=== PATIENT | male | born 1955 | race Caucasian/White ===

== ENCOUNTER 2016-10-31 05:41 | Inpatient (IN) | payer OTHER ==
--- NOTE | 2016-10-30 09:54 | HP ---
ADMIT DATE: 10/31/2016 DATE OF SURGERY: 10/31/2016 DIAGNOSIS: Bilateral claudication. HISTORY OF PRESENT ILLNESS: A 61-year-old male who came in initially with some left hip claudication. He had abnormally low ankle brachial indices and aortogram and runoff done here at [facility] showed aortoiliac and femoral stenotic and occlusive disease. He subsequently underwent cardiac clearance, was found to have coronary artery disease, and had 3 coronary artery stents. He now is admitted for an aortobifemoral bypass. PAST MEDICAL HISTORY: MEDICATIONS: Do include aspirin daily and Plavix plus see his reconciliation list for others. ILLNESSES: Hyperlipidemia, hypertension, coronary artery disease and peripheral vascular disease. Coronary artery stent was placed in mid September. SOCIAL HISTORY: Former smoker, quit about one month ago. ALLERGIES: None known. REVIEW OF SYSTEMS: Negative for diabetes and stroke. His review of systems is positive for GERD. FAMILY HISTORY: His father had coronary artery disease. PHYSICAL EXAMINATION: GENERAL: Thin, pleasant male, in no acute distress. NECK: 2+ carotids with bilateral bruits. 2+ right radial and brachial pulse, absent left radial and brachial pulse. HEART: He has got regular heart rate. CHEST: Diminished breath sound. ABDOMEN: Flat. No aneurysm palpable. EXTREMITIES: He has bilateral femoral bruits, decreased femoral pulses bilaterally, absent popliteal and pedal pulses. Feet without severe ischemic changes. NEUROLOGIC: Intact. Because of his carotid bruits, he had a carotid Doppler, which showed less than 50% stenosis bilaterally. IMPRESSION: Severe aortoiliac femoral atherosclerotic disease. PLAN: Aortobifemoral bypass, possible left fem-pop bypass. The nature of that procedure and the risks of bleeding, infection, wound healing problems, cardiac and pulmonary complications were explained and he is agreeable to proceed. REGINA RUGGIERO MD DR: CHELITA/josafat JOB#: [id number] / [id number]
[2016-10-31] VITALS (13 sets, daily range): BP systolic 82–135; BP diastolic 61–96
[~2016-10-31] VITALS: Ht 182.9 cm; Wt 75.4 kg
[~2016-10-31 05:41] MED LIST: ASCO500T2 PO; ASPI325T4 PO; ATOR20TA58 PO; CLOP75TA PO; METO25TA4 PO
[2016-10-31] MEDS ORDERED: CEFAZOLIN SODIUM 1 GM in IV NORMAL SALINE 500ML BAG 500 ML IRR ONE (06:00)
[2016-10-31] MEDS ORDERED: HEPARIN S0DIUM 5,000 UNIT in IV NORMAL SALINE 500ML BAG 500 ML IRR ONE (06:00)
[2016-10-31] MEDS ORDERED: CEFAZOLIN 2GM PREMIX 50 ML IV PRN (06:00)
[2016-10-31 06:46] LABS: BASO # 0.1 x10^3/uL (0.0-0.2); BASO % 1 % (0-3); EOS % 2 % (0-3); HEMATOCRIT 44.5 % (39.0-53.0); HEMOGLOBIN 14.8 g/dL (13.0-17.5); LYMPH # 2.6 x10^3/uL (1.0-4.8); LYMPH % 29 % (24-48); MEAN CORPUSCULAR HEMOGLOBIN 33 pg (25-35); MEAN CORPUSCULAR HGB CONC 33 g/dL (31-37); MEAN CORPUSCULAR VOLUME 99 fL (79-100); MONO % 8 % (0-9); NEUT % 61 % (31-73); PLATELET COUNT 145 x10^3/uL (140-400); RED BLOOD COUNT 4.52 x10^6/uL (4.30-5.70); RED CELL DISTRIBUTION WIDTH 15.1 % (11.5-14.5); WHITE BLOOD COUNT 8.9 x10^3/uL (4.0-11.0)
[2016-10-31] MEDS ORDERED: FENTANYL PF 100 MCG/2 ML VIAL. ONE (06:53)
[2016-10-31] MEDS ORDERED: LIDOCAINE 2% 100 MG/5 ML DISP.SYRIN. ONE (06:53)
[2016-10-31] MEDS ORDERED: MIDAZOLAM HCL 2 MG/2 ML VIAL. ONE (06:53)
[2016-10-31] MEDS ORDERED: DEXAMETHASONE SOD PHOS 20 MG/5 ML VIAL. ONE (06:54)
[2016-10-31] MEDS ORDERED: ONDANSETRON PF 4 MG/2 ML VIAL. ONE ×2 (06:54→09:48)
[2016-10-31] MEDS ORDERED: FAMOTIDINE 20 MG/2 ML VIAL ONE (06:54)
[2016-10-31] MEDS ORDERED: ROCURONIUM 50 MG/5 ML VIAL. ONE (06:54)
[2016-10-31] MEDS ORDERED: PROPOFOL 20 ML IV ONE (06:54)
[2016-10-31] MEDS ORDERED: SURGICEL FIBRILLAR 1X2 EACH. ONE (06:56)
[2016-10-31 06:57] LABS: CALCIUM 8.8 mg/dL (8.5-10.1); CREATININE 0.8 mg/dL (0.7-1.3); GFR 98.9
[2016-10-31 07:00] LABS: INR 1.1 (0.8-1.1); PROTHROMBIN TIME PATIENT 13.4 SEC (11.7-14.0)
[2016-10-31] MEDS ORDERED: HYDROMORPHONE 2 MG/ML VIAL. IV PRN ×2 (07:00→07:45)
[2016-10-31] MEDS ORDERED: MORPHINE SULFATE 2 MG/ML DISP.SYRIN. IV PRN (07:00)
[2016-10-31] MEDS ORDERED: FENTANYL PF 100 MCG/2 ML VIAL. IV PRN (07:00)
[2016-10-31] MEDS ORDERED: IV RINGERS,LACTATED 1000ML 1,000 ML IV SCH (07:00)
[2016-10-31] MEDS ORDERED: LIDOCAINE 1% 1 ML SYRINGE. ID PRN (07:00)
[2016-10-31] MEDS ORDERED: PROCHLORPERAZINE 10 MG/2 ML VIAL. IV PRN (07:00)
[2016-10-31] MEDS ORDERED: ONDANSETRON PF 4 MG/2 ML VIAL. IV PRN (07:00)
[2016-10-31] MEDS ORDERED: IV DEXTROSE 5 %-0.45 % NACL 1,000 ML IV SCH (07:35)
[2016-10-31] MEDS ORDERED: DIPHENHYDRAMINE 50 MG/ML VIAL IV PRN (07:45)
[2016-10-31] MEDS ORDERED: NALOXONE 0.4 MG/ML VIAL. IV PRN (07:45)
[2016-10-31] MEDS ORDERED: ZOLPIDEM 5 MG TABLET. PO PRN (07:45)
[2016-10-31] MEDS ORDERED: DIPHENHYDRAMINE HCL 25 MG CAPSULE PO PRN (07:45)
[2016-10-31] MEDS ORDERED: CALCIUM CARBONATE 500 MG TAB.CHEW PO PRN (07:45)
[2016-10-31] MEDS ORDERED: 0.9 % SODIUM CHLORIDE 10 ML DISP.SYRIN. IV PRN (07:45)
[2016-10-31] MEDS ORDERED: MAG HYDROX/AL HYDROX/SIMETH 30 ML ORAL.SUSP PO PRN (07:45)
[2016-10-31] MEDS ORDERED: HEPARIN for IV BOLUS 10,000 UNIT/10 ML VIAL. ONE ×2 (07:46→09:48)
[2016-10-31] MEDS ORDERED: METOPROLOL TARTRATE 5 MG/5 ML VIAL. ONE (07:55)
[2016-10-31] MEDS ORDERED: PHENYLEPHRINE in 0.9% NACL PF 1 MG/10 ML DISP.SYRIN. IV ONE (07:58)
[2016-10-31] MEDS ORDERED: EPHEDRINE PF IN SALINE 50 MG/5 ML DISP.SYRIN. IV ONE ×2 (08:04→10:34)
[2016-10-31] MEDS ORDERED: SEVOFLURANE > 120 MINUTES. IH ONE (08:35)
[2016-10-31] MEDS ORDERED: VECURONIUM BOLUS 10 MG VIAL. IV ONE (09:39)
[2016-10-31] MEDS ORDERED: MORPHINE SULFATE 10 MG/ML VIAL. ONE (09:44)
[2016-10-31] MEDS ORDERED: NEOSTIGMINE METHYLSULFATE 5 MG/5 ML SYRINGE. ONE (10:54)
[2016-10-31] MEDS ORDERED: GLYCOPYRROLATE 1 MG/5 ML VIAL. ONE (10:54)
--- NOTE | 2016-10-31 11:23 | PDOC4 ---
Operative Note Operative Note OP NOTE dictated Pre-op: aortic and iliac occlusive disease with bilateral lower extremity peripheral artery disease symptomatic with rest pain Post-op: same Surgery: Aortobifemoral artery bypass with PTFE graft, left femoral endarterectomy, reimplantation of the inferior mesenteric artery into the graft Surgeon: Dr. Wilkinson Breakfast Server: Dr. Diaz Anesthesia: general Blood loss: 1700ml with 1100 given back in cell saver transfusion JENNIFER DIAZ MD Oct 31, 2016 11:23
[2016-10-31] MEDS ORDERED: hydrALAZINE 20 MG/ML VIAL. IVP PRN (11:30)
[2016-10-31] MEDS: FENTANYL PF 100 MCG/2 ML VIAL. IV PRN ×2 (11:51→12:04)
[2016-10-31 12:23] LABS: BASO # 0.1 x10^3/uL (0.0-0.2); BASO % 1 % (0-3); EOS % 0 % (0-3); HEMATOCRIT 48.5 % (39.0-53.0); HEMOGLOBIN 15.6 g/dL (13.0-17.5); LYMPH # 2.2 x10^3/uL (1.0-4.8); LYMPH % 14 % (24-48); MEAN CORPUSCULAR HEMOGLOBIN 32 pg (25-35); MEAN CORPUSCULAR HGB CONC 32 g/dL (31-37); MEAN CORPUSCULAR VOLUME 100 fL (79-100); MONO % 2 % (0-9); NEUT % 83 % (31-73); PLATELET COUNT 140 x10^3/uL (140-400); RED BLOOD COUNT 4.86 x10^6/uL (4.30-5.70); RED CELL DISTRIBUTION WIDTH 15.4 % (11.5-14.5); WHITE BLOOD COUNT 15.2 x10^3/uL (4.0-11.0)
[2016-10-31 12:30] LABS: INR 1.3 (0.8-1.1); PROTHROMBIN TIME PATIENT 15.2 SEC (11.7-14.0)
[2016-10-31 12:33] LABS: CALCIUM 7.4 mg/dL (8.5-10.1); CREATININE 0.9 mg/dL (0.7-1.3); GFR 86.4; MAGNESIUM 1.4 mg/dL (1.8-2.4)
[2016-10-31] MEDS: CEFAZOLIN SODIUM 1 GM in IV NORMAL SALINE 50ML 50 ML IV SCH ×2 (12:51→19:41)
[2016-10-31] MEDS: IV RINGERS,LACTATED 1000ML 1,000 ML IV SCH ×2 (12:52→17:35)
--- NOTE | 2016-10-31 14:40 | OP ---
DATE OF SURGERY: 10/31/2016 PREOPERATIVE DIAGNOSES: Bilateral claudication with ischemic pain, left foot secondary to multiple level atherosclerotic vascular disease. POSTOPERATIVE DIAGNOSIS: Bilateral claudication with ischemic pain, left foot secondary to multiple level atherosclerotic vascular disease. PROCEDURE PERFORMED: Aortobifemoral bypass using a 16 x 8 Roxbury-Sarkis graft, proximal aortic endarterectomy, left common femoral endarterectomy, reimplantation of the inferior mesenteric artery. SURGEON: Ab Wilkinson MD DINKEY BRAKEMAN: Dr. Diaz. ANESTHETIC: General. DESCRIPTION OF PROCEDURE: After adequate general endotracheal anesthetic, prepping and draping bilateral groin, incision was made, bleeding controlled with cautery. Crossing vessels divided between Hemoclips or silk ties. The common, superficial and profunda femoral arteries were dissected out, encircled with Vesseloops bilaterally. Blunt dissection was used to begin the retroinguinal tunnels. Antibiotics soaked sponges were packed in each groin. A midline abdominal incision was made, bleeding controlled with cautery. Fascia divided with cautery. Retractors were placed. Small bowel was mobilized to the right. The aorta was exposed from the renal vein to the bifurcation. He was given 8000 units of heparin, tunnels were made, retroperitoneal and umbilical tape were passed through these. After heparin circulated, a clamp was placed across the severely diseased, calcified distal aorta. JAEL Vesseloop was encircled and tightened. Attempt was made to do usual clamp on the aorta, but there was posterior plaque, so we had to dissect around the aorta, passed the umbilical tape around the aorta and then used the side biting Satinsky type clamp to cross clamp the aorta. The aorta was then entered with Metzenbaums scissors. Gross plaque endarterectomy was done with the right ankle clamp excising the plaque out of the stump of the distal aorta. Lumbar vessels were controlled with Prolene stitches. There were some leakage through the stump of the aorta, which was controlled with pressure. Dr. Diaz sewed up the lumbar vessels and then oversewed the stump of the aorta with the 3-0 Prolene stitch. That clamp was then removed. Proximal endarterectomy was done of the aorta and the clamp was readjusted on the endarterectomized portion of the aorta to slow down bleeding and end-to-end anastomosis then done between the end of the 16 x 8 Roxbury-Sarkis graft and the end of the aorta with an HS5 Prolene stitch. The clamp was removed. One additional stitch of HS7 Prolene was used to control bleeding, 4 x 4s were packed around the proximal anastomosis. The graft was clamped below the anastomosis. Both limbs were then tunneled into each groin respectively. Heparin was irrigated through the graft. The graftotomy was made in the part of the aorta containing the orifice. The JAEL was then reimplanted to the side of the graft using an HS 7 Prolene stitch. After completion of that, clamp was released and flow was allowed into that JAEL and the clamp was placed below the JAEL. There was triphasic arterial blood flow in the JAEL. Blood was irrigated from the graft, again left groin Vesseloops were tightened and clamped. Arteriotomy made in the distal common femoral on to the profunda femoral artery. An endarterectomy was done of the severely diseased artery there blindly up into the proximal common femoral. An end-to-side anastomosis then done between the left limb of the graft and the side of left distal common femoral artery on to the profunda orifice using an HS7 Prolene stitch. After completion of this, clamps were released. Heparin was irrigated into the right side of the graft. The aortic graft clamp was released flushed and brought out the open right limb, then allowing blood flow to the left leg. The right limb of the graft was clamped. Blood was irrigated from the right limb of the graft. Anastomosis then done between the end of the right limb of the graft and side of the right common femoral artery using an HS7 Prolene stitch. Just prior to complete closure forward bleeding was checked, anastomosis completed, clamps were released and flow was allowed into the right leg. Minimal bleeding along the suture lines. The patient was given 40 mg of protamine. Hemostasis was obtained with pressure and one additional stitch in the proximal anastomosis, both groins were irrigated. Fibular Surgicel packed around suture lines. Triphasic arterial flow was heard with a Doppler in both the left profunda and SFA and profunda on the right, plus the JAEL. Both groin incisions were then closed with two layers of Vicryl. The retroperitoneum was closed with single layer of Vicryl. All retractors sponge and instruments were removed. There was a strong mesenteric pulse in the small bowel. The color of the sigmoid colon looked find. The retroperitoneum was closed over the graft with a running 2-0 Vicryl and then the incision in the abdomen closed with #1 PDS and rasheed for all skin incisions. He tolerated the procedure well and left the operating room in stable condition. ESTIMATED BLOOD LOSS: 1700, given 1100 Cell Saver. AB WILKINSON MD DR: CHELITA/josafat JOB#: [id number] / [id number]
[2016-10-31] MEDS: MORPHINE SULFATE 2 MG/ML DISP.SYRIN. IV PRN ×3 (16:18→22:08)
[2016-10-31] MEDS: DOCUSATE SODIUM 100 MG CAPSULE PO SCH (20:43)
[2016-10-31] MEDS ORDERED: SODIUM CHLORIDE 0.9% IV ONE (21:00)
[2016-10-31] MEDS ORDERED: MAGNESIUM SULFATE IV ONE (21:00)
[2016-11-01] VITALS (13 sets, daily range): BP systolic 97–150; BP diastolic 56–74
[2016-11-01] MEDS: MORPHINE SULFATE 2 MG/ML DISP.SYRIN. IV PRN ×8 (01:53→23:05)
[2016-11-01] MEDS: IV RINGERS,LACTATED 1000ML 1,000 ML IV SCH ×2 (01:53→13:35)
[2016-11-01] MEDS: CEFAZOLIN SODIUM 1 GM in IV NORMAL SALINE 50ML 50 ML IV SCH (01:58)
[2016-11-01 04:53] LABS: BASO # 0.1 x10^3/uL (0.0-0.2); BASO % 0 % (0-3); EOS % 0 % (0-3); HEMATOCRIT 42.4 % (39.0-53.0); HEMOGLOBIN 14.2 g/dL (13.0-17.5); LYMPH # 3.3 x10^3/uL (1.0-4.8); LYMPH % 19 % (24-48); MEAN CORPUSCULAR HEMOGLOBIN 33 pg (25-35); MEAN CORPUSCULAR HGB CONC 33 g/dL (31-37); MEAN CORPUSCULAR VOLUME 98 fL (79-100); MONO % 10 % (0-9); NEUT % 71 % (31-73); PLATELET COUNT 167 x10^3/uL (140-400); RED BLOOD COUNT 4.35 x10^6/uL (4.30-5.70); RED CELL DISTRIBUTION WIDTH 15.7 % (11.5-14.5); WHITE BLOOD COUNT 17.2 x10^3/uL (4.0-11.0)
[2016-11-01 05:07] LABS: CALCIUM 7.9 mg/dL (8.5-10.1); CREATININE 1.1 mg/dL (0.7-1.3); GFR 68.5; POTASSIUM 5.2 mmol/L (3.5-5.1)
--- NOTE | 2016-11-01 07:44 | PDOC ---
Provider Note Provider Note POD # 1 Post op Aorto bi femoral bypass, to profunda on lt. Fairly comfortable No flatus Chest clear Abd flat , soft, quiet Dressing intact Feet warm , triphasic arterial flow on rt. ( SFA open), monophasic on lt ( SFA chronically occluded) Lab: WBC 17,200, H/H 14.2/42.4, K 5.2, Creat. 1.1, Mag 2.0 Imp: Stable with patent bypass Plan: Transfer to 2nd floor, chair, cont NG 1 more day REGINA RUGGIERO MD Nov 01, 2016 07:44
[2016-11-01] MEDS: DOCUSATE SODIUM 100 MG CAPSULE PO SCH ×2 (09:00→21:00)
[2016-11-02] MEDS: IV RINGERS,LACTATED 1000ML 1,000 ML IV SCH ×3 (01:42→19:35)
[2016-11-02 03:20] VITALS: BP 132/64
[2016-11-02] MEDS: MORPHINE SULFATE 2 MG/ML DISP.SYRIN. IV PRN ×5 (04:23→17:38)
--- NOTE | 2016-11-02 06:32 | PDOC ---
Provider Note Provider Note POD # 2 Feeling better, passing flatus Post op ABF Chest clear Abd. flat soft, fair bowel sounds Triphasic art. flow rt foot, monophasic on lt, feet warm with good color, calves soft, no edema Lab pending Imp: Patent bypass, improving Plan: DANIE schultz and RONY, Ambulate in [facility]. diet REGINA RUGGIERO MD Nov 02, 2016 06:31
[2016-11-02 07:45] VITALS: BP 124/62
[2016-11-02] MEDS ORDERED: ACETAMINOPHEN 325 MG TABLET. PO PRN (08:15)
[2016-11-02] MEDS: DOCUSATE SODIUM 100 MG CAPSULE PO SCH ×2 (08:53→21:57)
[2016-11-02] MEDS: CLOPIDOGREL BISULFATE 75 MG TABLET PO SCH (08:56)
[2016-11-02 11:41] VITALS: BP 133/64
[2016-11-02 15:37] VITALS: BP 140/74
[2016-11-02] MEDS: TAMSULOSIN 0.4 MG CAP.ER.24H. PO SCH (16:41)
[2016-11-02 19:41] VITALS: BP 139/67
[2016-11-02 22:58] VITALS: BP 142/78
[2016-11-02] MEDS: OXYCODONE/APAP 5/325 TABLET. PO PRN (23:02)
[2016-11-03 03:33] VITALS: BP 118/60
[2016-11-03] MEDS: OXYCODONE/APAP 5/325 TABLET. PO PRN (03:45)
[2016-11-03] MEDS: IV RINGERS,LACTATED 1000ML 1,000 ML IV SCH (05:35)
[2016-11-03 07:00] VITALS: BP 123/64
[2016-11-03] MEDS: ONDANSETRON PF 4 MG/2 ML VIAL. IV PRN (07:04)
--- NOTE | 2016-11-03 07:23 | PDOC ---
Provider Note Provider Note POD # 3 Post op ABF, ambulated well Feeling bloated, still passing flatus Had to have schultz reinserted, on Flomax Abd.mildly distended, incisions clean 2+ rt. popliteal pulse, warm feet nu. calves soft , no edema Imp: Patent bypass ? mild ileus Urinary retention Plan: Try to DC schultz again, Miralax then advance diet if pt. has BM REGINA Peña MD Nov 03, 2016 07:23
[2016-11-03] MEDS: CLOPIDOGREL BISULFATE 75 MG TABLET PO SCH (08:25)
[2016-11-03] MEDS: POLYETHYLENE GLYCOL 3350 17 GM PACKET. PO SCH (08:25)
[2016-11-03] MEDS: MORPHINE SULFATE 2 MG/ML DISP.SYRIN. IV PRN ×4 (08:26→20:17)
[2016-11-03] MEDS: DOCUSATE SODIUM 100 MG CAPSULE PO SCH ×2 (08:26→20:16)
[2016-11-03] MEDS: TAMSULOSIN 0.4 MG CAP.ER.24H. PO SCH (08:26)
[2016-11-03 11:00] VITALS: BP 98/64
[2016-11-03 15:00] VITALS: BP 102/58
[2016-11-03] MEDS ORDERED: IV NORMAL SALINE 500ML BAG 500 ML IV ONE (16:00)
[2016-11-03] MEDS: IV NORMAL SALINE 1000ML BAG 1,000 ML IV SCH (16:45)
[2016-11-03 19:57] VITALS: BP 102/64
[2016-11-03 22:20] VITALS: BP 110/62
[2016-11-04] MEDS: MORPHINE SULFATE 2 MG/ML DISP.SYRIN. IV PRN ×3 (01:04→08:38)
[2016-11-04] MEDS: IV NORMAL SALINE 1000ML BAG 1,000 ML IV SCH ×2 (03:11→12:30)
[2016-11-04 03:15] VITALS: BP 105/63
[2016-11-04 05:30] LABS: BASO % 0 % (0-3); EOS % 0 % (0-3); HEMATOCRIT 30.8 % (39.0-53.0); HEMOGLOBIN 10.1 g/dL (13.0-17.5); LYMPH # 4.5 x10^3/uL (1.0-4.8); LYMPH % 23 % (24-48); MEAN CORPUSCULAR HEMOGLOBIN 32 pg (25-35); MEAN CORPUSCULAR HGB CONC 33 g/dL (31-37); MEAN CORPUSCULAR VOLUME 98 fL (79-100); MONO % 11 % (0-9); NEUT % 66 % (31-73); PLATELET COUNT 173 x10^3/uL (140-400); RED BLOOD COUNT 3.13 x10^6/uL (4.30-5.70); RED CELL DISTRIBUTION WIDTH 14.8 % (11.5-14.5); WHITE BLOOD COUNT 19.7 x10^3/uL (4.0-11.0)
[2016-11-04 05:53] LABS: CALCIUM 7.3 mg/dL (8.5-10.1); CREATININE 0.8 mg/dL (0.7-1.3); GFR 98.9; POTASSIUM 4.6 mmol/L (3.5-5.1)
[2016-11-04 07:11] LABS: % EOS 1 % (0-5)
[2016-11-04 07:12] LABS: PLT ESTIMATE ADEQUATE (ADEQUATE)
[2016-11-04 07:13] LABS: ANISOCYTOSIS PRESENT
[2016-11-04 07:50] VITALS: BP 91/57
[2016-11-04] MEDS: CLOPIDOGREL BISULFATE 75 MG TABLET PO SCH (08:37)
[2016-11-04] MEDS: DOCUSATE SODIUM 100 MG CAPSULE PO SCH ×2 (08:37→20:45)
[2016-11-04] MEDS: TAMSULOSIN 0.4 MG CAP.ER.24H. PO SCH (08:37)
[2016-11-04] MEDS: POLYETHYLENE GLYCOL 3350 17 GM PACKET. PO SCH (08:37)
[2016-11-04 11:55] VITALS: BP 111/56
[2016-11-04] MEDS: ONDANSETRON PF 4 MG/2 ML VIAL. IV PRN (13:50)
[2016-11-04] MEDS: OXYCODONE IR 5 MG TABLET. PO PRN ×2 (13:50→20:45)
--- NOTE | 2016-11-04 14:06 | PDOC ---
Provider Note Provider Note having flatus and bowel movement AF VSS awake and alert abdomen soft, nondistended, nontender, dressings dry, no groin hematomas LEs warm with no swelling, feet warm and pink WBC 19 A/P POD #4 aortobifemoral artery bypass - urinary retension- replaced schultz, consult urology, check UA - advance to cardiac diet, heplock IV fluids - wean off oxygen, encourage IS and ambulation JENNIFER MCCABE MD Nov 04, 2016 14:06
[2016-11-04 15:51] VITALS: BP 100/51
[2016-11-04 18:48] LABS: BILIRUBIN,URINE NEGATIVE (NEG); GLUCOSE,URINE NEGATIVE (NEG); NITRITE,URINE NEGATIVE (NEG); PROTEIN,URINE NEGATIVE (NEG-TRACE); UROBILINOGEN,URINE 0.2 mg/dL (0.2 mg/dL)
[2016-11-04 19:02] LABS: BACTERIA,URINE 0 /HPF (0-FEW); RBC,URINE 0 /HPF (0-2)
[2016-11-04 19:20] VITALS: BP 93/60
[2016-11-04 23:30] VITALS: BP 98/54
[2016-11-05] MEDS: OXYCODONE IR 5 MG TABLET. PO PRN ×5 (01:00→20:54)
[2016-11-05 03:15] VITALS: BP 100/53
[2016-11-05 05:44] LABS: HEMATOCRIT 26.4 % (39.0-53.0); HEMOGLOBIN 8.8 g/dL (13.0-17.5); RED BLOOD COUNT 2.65 x10^6/uL (4.30-5.70); RED CELL DISTRIBUTION WIDTH 14.7 % (11.5-14.5); WHITE BLOOD COUNT 9.9 x10^3/uL (4.0-11.0)
[2016-11-05 06:11] LABS: CALCIUM 7.5 mg/dL (8.5-10.1); CREATININE 0.9 mg/dL (0.7-1.3); GFR 86.4
[2016-11-05 07:00] VITALS: BP 91/56
[2016-11-05] MEDS: POLYETHYLENE GLYCOL 3350 17 GM PACKET. PO SCH (08:01)
[2016-11-05] MEDS: CLOPIDOGREL BISULFATE 75 MG TABLET PO SCH (08:01)
[2016-11-05] MEDS: DOCUSATE SODIUM 100 MG CAPSULE PO SCH ×2 (08:01→15:13)
[2016-11-05] MEDS: TAMSULOSIN 0.4 MG CAP.ER.24H. PO SCH (08:01)
[2016-11-05 11:00] VITALS: BP 91/55
--- NOTE | 2016-11-05 12:32 | PDOC ---
Provider Note Provider Note having flatus and bowel movement AF VSS, off oxygen 93% awake and alert abdomen soft, nondistended, nontender, groin incisions intact with no erythema/ drainage, no groin hematomas LEs warm with no swelling, feet warm and pink Hgb 8.8 WBC 9 A/P POD #4 aortobifemoral artery bypass - urinary retension- replaced schultz, consult urology - advance to cardiac diet - encourage IS and ambulation - anemia - recheck H/H tomorrow JENNIFER MCCABE MD Nov 05, 2016 12:32
[2016-11-05 15:00] VITALS: BP 84/52
[2016-11-05 19:15] VITALS: BP 111/56
[2016-11-05 23:30] VITALS: BP 91/50
[2016-11-06 03:17] VITALS: BP 84/36
[2016-11-06] MEDS: OXYCODONE IR 5 MG TABLET. PO PRN (04:31)
[2016-11-06 05:15] LABS: HEMATOCRIT 29.1 % (39.0-53.0); HEMOGLOBIN 9.8 g/dL (13.0-17.5); RED BLOOD COUNT 2.99 x10^6/uL (4.30-5.70); RED CELL DISTRIBUTION WIDTH 15.2 % (11.5-14.5)
[2016-11-06 07:00] VITALS: BP 98/57
--- NOTE | 2016-11-06 08:10 | PDOC ---
Provider Note Provider Note UROLOGY: c/c Post-op urine retention Consult dictated, remove schultz this AM for voiding trial. ANNA HAWKINS DO Nov 06, 2016 08:10
[2016-11-06] MEDS: CLOPIDOGREL BISULFATE 75 MG TABLET PO SCH (08:42)
[2016-11-06] MEDS: TAMSULOSIN 0.4 MG CAP.ER.24H. PO SCH (08:42)
[2016-11-06] MEDS: OXYCODONE/APAP 5/325 TABLET. PO PRN ×2 (08:47→15:30)
[2016-11-06] MEDS: POLYETHYLENE GLYCOL 3350 17 GM PACKET. PO SCH (09:00)
[2016-11-06] MEDS: DOCUSATE SODIUM 100 MG CAPSULE PO SCH (09:00)
[2016-11-06] MEDS ORDERED: POTASSIUM CHLORIDE 20 MEQ TABLET.ER. PO ONE (09:30)
[2016-11-06] MEDS ORDERED: FUROSEMIDE 40 MG/4 ML VIAL IVP ONE (09:30)
--- NOTE | 2016-11-06 09:40 | PDOC ---
PROGRESS NOTES Subjective Subjective "I wish I could pee. And my legs and scrotum are swollen." Objective Objective Vascular Surgery - POD#5 Aortobifem Bypass O: Watching TV comfortably in bed. No acute distress. States left hip pain is gone now. CV: RRR Pulm: Anteriorly clear. Using I.S. well Abd: Flat and non-distended. Active sounds. +BM x2 this a.m. Genie diet progression Incisions: Abd and bilat groin incisions intact. Serous weeping from bilat groins evidenced by drainage on dressings. No erythema. Bilat lower extremities: Strong, bilateral DP and PT pulses. Feet warm. 2-3+ edema to legs and scrotum. Assessment/Plan: 1. Severe PAD with left hip claudication pain - s/p POD#5 ABF with patent bypass graft. - continue antiplatelet therapy upon discharge. Was already on ASA and Plavix at home. - Follow up scheduled with Dr. Wilkinson 11/20/16 - Ok to discharge to home today unless significant issues with urinary retention that would cause patient to remain hospitalized. 2. Urinary Retention. Appreciate Urology consultation. Schultz has just been removed. Voiding trial initiated. Patient on Flomax now. - If schultz needs to be replaced, plan for replacement and f/u with Urology as out-patient. 3. Post op peripheral edema with swelling - 12 pound increase in weight from preop. Will give dose of lasix/K + prior to discharge. Scrotum quite swollen as well. 4. Acute anemia related to surgery and probable dilutional effect, - repeat H&H this a.m. stable without further drift. - diuresis will help concentrate H&H 5. Tobacco Abuse - smoking cessation education provided. Patient stopped smoking 1 month ago and feels he will be able to stop. ' Vital Signs Date Time Temp Pulse Resp B/P Pulse Ox O2 Delivery O2 Flow Rate FiO2 11/06/16 08:47 16 Room Air 11/06/16 07:00 98.3 84 98/57 97 98.3 11/05/16 20:00 2.0 Intake and Output 11/06/16 09:00 Intake Total 1040 ml Output Total 1250 ml Balance -210 ml Intake Oral 1040 ml Output Urine Total 1250 ml Assessment Assessment Problems Medical Problems: (1) Claudication in peripheral vascular disease Status: Acute Comment Review of Relevant I have reviewed the following items casey (where applicable) has been applied. Labs Laboratory Tests Test 11/04/16 16:00 11/05/16 05:15 11/06/16 04:30 Urine Collection Type Unknown Urine Color Yellow Urine Clarity Clear Urine pH 6.0 Urine Specific [place] 1.025 Urine Protein Negativemg/dL (NEG-TRACE) Urine Glucose (UA) Negativemg/dL (NEG) Urine Ketones (Stick) Negativemg/dL (NEG) Urine Blood Trace (NEG) Urine Nitrite Negative (NEG) Urine Bilirubin Negative (NEG) Urine Urobilinogen Dipstick 0.2mg/dL (0.2 mg/dL) Urine Leukocyte Esterase Moderate (NEG) Urine RBC 0/HPF (0-2) Urine WBC 1-4/HPF (0-4) Urine Bacteria 0/HPF (0-FEW) Urine Mucus Mod/LPF White Blood Count 9.9x10^3/uL (4.0-11.0) 11.0x10^3/uL (4.0-11.0) Red Blood Count 2.65x10^6/uL (4.30-5.70) 2.99x10^6/uL (4.30-5.70) Hemoglobin 8.8g/dL (13.0-17.5) 9.8g/dL (13.0-17.5) Hematocrit 26.4% (39.0-53.0) 29.1% (39.0-53.0) Mean Corpuscular Volume 100fL (79-100) 97fL (79-100) Mean Corpuscular Hemoglobin 33pg (25-35) 33pg (25-35) Mean Corpuscular Hemoglobin Concent 33g/dL (31-37) 34g/dL (31-37) Red Cell Distribution Width 14.7% (11.5-14.5) 15.2% (11.5-14.5) Platelet Count 159x10^3/uL (140-400) 229x10^3/uL (140-400) Sodium Level 136mmol/L (136-145) Potassium Level 4.0mmol/L (3.5-5.1) Chloride Level 104mmol/L (98-107) Carbon Dioxide Level 27mmol/L (21-32) Anion Gap 5 (6-14) Blood Urea Nitrogen 20mg/dL (8-26) Creatinine 0.9mg/dL (0.7-1.3) Estimated GFR (Cockcroft-Gault) 86.4 Glucose Level 88mg/dL (70-99) Calcium Level 7.5mg/dL (8.5-10.1) Laboratory Tests Test 11/06/16 04:30 White Blood Count 11.0x10^3/uL (4.0-11.0) Red Blood Count 2.99x10^6/uL (4.30-5.70) Hemoglobin 9.8g/dL (13.0-17.5) Hematocrit 29.1% (39.0-53.0) Mean Corpuscular Volume 97fL (79-100) Mean Corpuscular Hemoglobin 33pg (25-35) Mean Corpuscular Hemoglobin Concent 34g/dL (31-37) Red Cell Distribution Width 15.2% (11.5-14.5) Platelet Count 229x10^3/uL (140-400) Medications Current Medications Ondansetron HCl (Zofran) 4 mg PRN Q6HRS PRN IV Nausea; Start 10/31/16 at 07:00 ; Stop 11/01/16 at 06:59; Status DC Fentanyl Citrate (Fentanyl 2ml Vial) 25 mcg PRN Q5MIN PRN IV MILD PAIN Last administered on 10/31/16 13:38; Start 10/31/16 at 07:00; Stop 11/01/16 at 06:59 ; Status DC Fentanyl Citrate (Fentanyl 2ml Vial) 50 mcg PRN Q5MIN PRN IV MODERATE PAIN Last administered on 10/31/16 12:04; Start 10/31/16 at 07:00; Stop 11/01/16 at 06:59; Status DC Morphine Sulfate 1 mg 1 mg PRN Q10MIN PRN IV SEVERE PAIN; Start 10/31/16 at 07: 00; Stop 11/01/16 at 06:59; Status DC Lactated Ringer's (Iv Lactated Ringers) 1,000 ml @ 0 mls/hr Q0M IV Last administered on 10/31/16 06:39; Start 10/31/16 at 07:00; Stop 10/31/16 at 18:59 ; Status DC Lidocaine HCl 2 ml 1X PRN PRN ID IV START; Start 10/31/16 at 07:00; Stop at 06:59; Status DC Hydromorphone HCl (Dilaudid) 0.5 mg PRN Q10MIN PRN IV SEVERE PAIN, Second choice; Start 10/31/16 at 07:00; Stop 11/01/16 at 06:59; Status DC Prochlorperazine Edisylate 5 mg 5 mg PACU PRN PRN IV NAUSEA; Start 10/31/16 at 07:00; Stop 11/01/16 at 06:59; Status DC Heparin Sodium (Porcine) 5000 unit/Sodium Chloride 505 ml @ 505 mls/hr 1X PERIOP ONCE IRR Last administered on 10/31/16 08:14; Start 10/31/16 at 06:00 ; Stop 10/31/16 at 06:59; Status DC Cefazolin Sodium 1 gm/Sodium Chloride 500 ml @ 500 mls/hr 1X PERIOP ONCE IRR Last administered on 10/31/16 08:14; Start 10/31/16 at 06:00; Stop 10/31/16 at 06:59; Status DC Cefazolin Sodium/ Dextrose (Ancef 2gm Premix) 50 ml @ 100 mls/hr 1X PREOP PRN IV PRIOR TO PROCEDURE Last administered on 10/31/16 08:03; Start 10/31/16 at 06 :00; Stop 10/31/16 at 18:00; Status DC Midazolam HCl (Versed) 2 mg STK-MED ONCE .ROUTE ; Start 10/31/16 at 06:53; Stop 10/31/16 at 06:54; Status DC Fentanyl Citrate (Fentanyl 2ml Vial) 100 mcg STK-MED ONCE .ROUTE ; Start at 06:53; Stop 10/31/16 at 06:54; Status DC Lidocaine HCl 100 mg 100 mg STK-MED ONCE .ROUTE ; Start 10/31/16 at 06:53; Stop 10/31/16 at 06:54; Status DC Propofol (Diprivan) 20 ml @ As Directed STK-MED ONCE IV ; Start 10/31/16 at 06: 54; Stop 10/31/16 at 06:55; Status DC Dexamethasone Sodium Phosphate (Decadron) 20 mg STK-MED ONCE .ROUTE ; Start at 06:54; Stop 10/31/16 at 06:55; Status DC Ondansetron HCl (Zofran) 4 mg STK-MED ONCE .ROUTE ; Start 10/31/16 at 06:54; Stop 10/31/16 at 06:55; Status DC Famotidine (Pepcid) 20 mg STK-MED ONCE .ROUTE ; Start 10/31/16 at 06:54; Stop at 06:55; Status DC Rocuronium [place] (Zemuron) 50 mg STK-MED ONCE .ROUTE ; Start 10/31/16 at 06:54 ; Stop 10/31/16 at 06:55; Status DC Cellulose 1 each 1 each STK-MED ONCE .ROUTE Last administered on 10/31/16 10: 30; Start 10/31/16 at 06:56; Stop 10/31/16 at 06:57; Status DC Cefazolin Sodium/ Sodium Chloride (Ancef/Iv Sodium Chloride 0.9% 50ml) 50 ml @ 100 mls/hr Q6H IV Last administered on 11/01/16 01:58; Start 10/31/16 at 14:00 ; Stop 11/01/16 at 02:29; Status DC Oxycodone HCl (Roxicodone) 5 mg PRN Q3HRS PRN PO BREAKTHROUGH PAIN Last administered on 11/06/16 04:31; Start 10/31/16 at 07:45 Al Hydroxide/Mg Hydroxide (Mylanta Plus Xs) 30 ml PRN Q3HRS PRN PO HEARTBURN / GAS; Start 10/31/16 at 07:45 Calcium Carbonate/ Glycine (Tums) 500 mg PRN Q3HRS PRN PO INDIGESTION; Start at 07:45 Diphenhydramine HCl (Benadryl) 25 mg PRN Q6HRS PRN PO ITCHING; Start 10/31/16 at 07:45 Diphenhydramine HCl (Benadryl) 25 mg PRN Q6HRS PRN IV ITCHING; Start 10/31/16 at 07:45 Zolpidem Tartrate (Ambien) 5 mg PRN QHS PRN PO INSOMNIA; Start 10/31/16 at 07: 45 Naloxone HCl (Narcan) 0.1 mg PRN Q2MIN PRN IV ADMIN; Start 10/31/16 at 07:45 Sodium Chloride 3 ml 3 ml QSHIFT PRN IV AFTER MEDS AND BLOOD DRAWS; Start 10/31 at 07:45 Lactated Ringer's 1,000 ml @ 100 mls/hr Q10H IV Last administered on 11:52; Start 10/31/16 at 07:35; Stop 11/03/16 at 15:57; Status DC Dextrose/Sodium Chloride (Iv D5% - 1/2 NS) 1,000 ml @ 50 mls/hr Q20H IV ; Start 10/31/16 at 07:35; Stop 10/31/16 at 20:21; Status DC Morphine Sulfate 2 mg PRN Q1HR PRN IV PAIN Last administered on 11/04/16 08:38 ; Start 10/31/16 at 07:45 Hydromorphone HCl (Dilaudid) 0.4 mg PRN Q1HR PRN IV PAIN; Start 10/31/16 at 07: 45 Oxycodone/ Acetaminophen (Percocet 5/325) 2 tab PRN Q4HRS PRN PO MODERATE PAIN , SEVERE PAIN Last administered on 11/06/16 08:47; Start 10/31/16 at 07:45 Docusate Sodium (Colace) 100 mg BID PO Last administered on 11/05/16 08:01; Start 10/31/16 at 21:00 Ondansetron HCl (Zofran) 4 mg PRN Q6HRS PRN IV NAUESA, 1ST CHOICE Last administered on 11/04/16 13:50; Start 10/31/16 at 07:45 Heparin Sodium (Porcine) 10,000 unit STK-MED ONCE .ROUTE ; Start 10/31/16 at 07: 46; Stop 10/31/16 at 07:47; Status DC Metoprolol Tartrate (Lopressor) 5 mg STK-MED ONCE .ROUTE ; Start 10/31/16 at 07: 55; Stop 10/31/16 at 07:56; Status DC Phenylephrine HCl 1 mg STK-MED ONCE IV ; Start 10/31/16 at 07:58; Stop 10/31/16 at 07:59; Status DC Ephedrine Sulfate 50 mg STK-MED ONCE IV ; Start 10/31/16 at 08:04; Stop at 08:05; Status DC Sevoflurane (Ultane) 90 ml STK-MED ONCE IH ; Start 10/31/16 at 08:35; Stop 10/31 at 08:36; Status DC Vecuronium [place] (Norcuron Bolus) 10 mg STK-MED ONCE IV ; Start 10/31/16 at 09 :39; Stop 10/31/16 at 09:40; Status DC Morphine Sulfate 10 mg STK-MED ONCE .ROUTE ; Start 10/31/16 at 09:44; Stop 10/31 at 09:45; Status DC Ondansetron HCl (Zofran) 4 mg STK-MED ONCE .ROUTE ; Start 10/31/16 at 09:48; Stop 10/31/16 at 09:49; Status DC Heparin Sodium (Porcine) 10,000 unit STK-MED ONCE .ROUTE ; Start 10/31/16 at 09: 48; Stop 10/31/16 at 09:49; Status DC Ephedrine Sulfate 50 mg STK-MED ONCE IV ; Start 10/31/16 at 10:34; Stop at 10:35; Status DC Glycopyrrolate (Robinul) 1 mg STK-MED ONCE .ROUTE ; Start 10/31/16 at 10:54; Stop 10/31/16 at 10:55; Status DC Neostigmine Methylsulfate 5 mg STK-MED ONCE .ROUTE ; Start 10/31/16 at 10:54; Stop 10/31/16 at 10:55; Status DC Hydralazine HCl 10 mg 10 mg PRN Q1HR PRN IVP ELEVATED BP, SEE COMMENTS; Start 10/31/16 at 11:30 Magnesium Sulfate/ Sodium Chloride (Iv Normal Saline 150ml) 156 ml @ 26 mls/hr 1X ONCE IV Last administered on 10/31/16t 20:40; Start 10/31/16 at 21:00; Stop 11/01/16 at 02:59; Status DC Clopidogrel Bisulfate (Plavix) 75 mg DAILYWBKFT PO Last administered on 08:42; Start 11/02/16 at 08:00 Acetaminophen (Tylenol) 325 mg PRN Q6HRS PRN PO MILD PAIN / TEMP Last administered on 11/02/16 08:56; Start 11/02/16 at 08:15 Tamsulosin HCl (Flomax) 0.4 mg DAILY PO Last administered on 11/06/16 08:42; Start 11/02/16 at 16:00 Polyethylene Glycol 17 gm 17 gm DAILY PO Last administered on 11/05/16 08:01; Start 11/03/16 at 09:00 Sodium Chloride 1,000 ml @ 100 mls/hr Q10H IV Last administered on 11/04/16 12:30; Start 11/03/16 at 16:30; Stop 11/04/16 at 14:02; Status DC Sodium Chloride (Iv Sodium Chloride 0.9% 500ml Bag) 500 ml @ 500 mls/hr 1X ONCE IV Last administered on 11/03/16 16:29; Start 11/03/16 at 16:00; Stop at 16:59; Status DC Active Scripts Active Reported Aspirin 325 Mg Tablet 1 Tab PO DAILY Metoprolol Tartrate 25 Mg Tablet 0.5 Tab PO BID Atorvastatin Calcium 20 Mg Tablet 1 Tab PO HS Clopidogrel (Clopidogrel Bisulfate) 75 Mg Tablet 1 Tab PO DAILY Vitamin C (Ascorbic Acid) 500 Mg Tablet 500 Mg PO DAILY Vitals/I & O Vital Sign - Last 24 Hours 11/05/16 11/05/16 11/05/16 11/05/16 08:01 08:08 09:00 11:00 Temp 98.7 98.7 Pulse 89 Resp 20 20 B/P 91/55 Pulse Ox 99 95 O2 Delivery Nasal Cannula Nasal Cannula Nasal Cannula O2 Flow Rate 2.0 1.0 1.0 2.0 11/05/16 11/05/16 11/05/16 11/05/16 11:40 15:00 15:18 16:30 Temp 98.6 98.6 Pulse 104 Resp 18 20 18 18 B/P 84/52 Pulse Ox 99 93 96 96 O2 Delivery Nasal Cannula Nasal Cannula Room Air Room Air O2 Flow Rate 2.0 11/05/16 11/05/16 11/05/16 11/06/16 19:15 20:00 23:30 03:17 Temp 98.3 100.0 98.3 100.0 Pulse 92 92 91 Resp 18 22 B/P 111/56 91/50 84/36 Pulse Ox 95 96 O2 Delivery Room Air Nasal Cannula Room Air O2 Flow Rate 2.0 11/06/16 11/06/16 07:00 08:47 Temp 98.3 98.3 Pulse 84 Resp 18 16 B/P 98/57 Pulse Ox 97 O2 Delivery Room Air Room Air Intake and Output 11/05/16 11/06/16 11/06/16 17:00 01:00 09:00 Intake Total 240 ml 800 ml Output Total 650 ml 600 ml Balance -410 ml 200 ml SHADIA WILKINSON APRN Nov 06, 2016 09:40
--- NOTE | 2016-11-06 09:44 | DISCH ---
DISCHARGE INSTRUCTIONS Condition on Discharge Condition on Discharge: Stable Activity After Discharge Activity Instructions for Disc: Activity as tolerated Bathing Instructions: No Tub Bath until see (All incisions will need to be completely healed) Lifting Instructions after Dis: No heavy lifting, Do not lift >10 pounds Exercise Instruction after Dis: Progress as tolerated Driving Instructions after Dis: No driving for 2 weeks Weight Bearing Status after Di: No restrictions Diet after Discharge Diet after Discharge: Cardiac Wound Incision Care Wound/Incision Care: May get incision wet, Reinforce dressing PRN (May need gauze dressing to groin incisions if they continue to weep) Contacting the DRJackson after DC Call your doctor for: Concerns you may have (Redness or swelling to incisions) Follow-Up Follow up with: Dr. Wilkinson 11/20/16 at 8:00 a.m. Follow Up With: Urology as needed SHADIA WILKINSON APRN Nov 06, 2016 09:44
[2016-11-06] MEDS ORDERED: TAMS0.4C97 PO (10:01)
[2016-11-06] MEDS ORDERED: OXYC1TAB7 PO (10:01)
[2016-11-06 10:44] VITALS: BP 94/59
[2016-11-06] MEDS ORDERED: MAGNESIUM SULFATE 2GM 50 ML IV ONE (15:15)
[2016-11-06 15:42] VITALS: BP 98/57
--- NOTE | 2016-11-06 17:45 | CONS ---
DATE OF CONSULTATION: 11/06/2016 CHIEF COMPLAINT: Postop urinary retention. HISTORY OF PRESENT ILLNESS: This is a 61-year-old male that underwent aortofemoral bypass surgery and proximal aortic endarterectomy on 10/31/2016. Postoperatively, the patient has failed voiding trials when his catheter was removed. The patient denies difficulty voiding at home prior to his hospitalization. He states he gets up once sometimes twice a night. During the day he voids every 3 hours or so. He states his stream is moderate in nature. He has never had any episodes of retention at home. The patient prior to his hospitalization was not on any prostate medications. PAST MEDICAL HISTORY: The patient has a history of peripheral vascular disease. The patient also has a history of coronary artery disease. PAST SURGICAL HISTORY: He has had stents placed. ALLERGIES: No known allergies. PHYSICAL EXAMINATION: GENERAL: A 61-year-old male, appears to be older than his stated age. He is alert and oriented. He denies any pain or discomfort. ABDOMEN: Soft. He has a midline incision, which appears to be healing satisfactorily. There are no palpable abdominal masses. No suprapubic tenderness. GENITALIA: The patient has indwelling Hooker catheter draining quin colored urine. RECTAL: Not performed at this time. MUSCULOSKELETAL: Negative for cyanosis or edema. LABORATORY DATA: The patient's hemoglobin is 9.9, hematocrit 29.1, platelet count is adequate. The patient's electrolytes are normal. His BUN is 20, creatinine 0.9. Urinalysis on admission showed moderate leukocytes, 1-4 white blood cells, negative for bacteria. IMPRESSION: Postoperative urinary retention. SUGGESTIONS: 1. The patient has been started on Flomax 1 tablet daily. 2. I have asked the nursing staff to remove his Hooker catheter this morning for a voiding trial. If he is able to void satisfactorily then he will go home on Flomax and follow up with me in the office. 3. If the patient cannot void, then we will send him home with a Hooker catheter and he will follow up with me in the office. At that time, we will probably plan on doing a cystoscopy to evaluate his bladder outlet. ANNA HAWKINS DO DR: [email or web address]/josafat JOB#: [id number] / [id number]
== END 2016-11-06 18:00 | disposition home or self-care (01) | DRG 272 ==
LOC: OPSVCIP 05:41 → 1 WEST ICU 10:55 → 2 SOUTH 11-01 18:35
PROVIDERS: ADMIT Specialist; ATTEND Specialist
PROC: 04CL0ZZ Extirpation of Matter from Left Femoral Artery, Open Approach (ICD-10-PCS; 2016-10-31)
PROC: 04SB0ZZ Reposition Inferior Mesenteric Artery, Open Approach (ICD-10-PCS; 2016-10-31)
PROC: 041 Lower Arteries, Bypass (ICD-10-PCS; principal; 2016-10-31 07:30)
DX: I73.9 Peripheral vascular disease, unspecified (principal); Z98.890 Other specified postprocedural states; E78.5 Hyperlipidemia, unspecified; I10 Essential (primary) hypertension; I25.10 Atherosclerotic heart disease of native coronary artery without angina pectoris; Z82.49 Family history of ischemic heart disease and other diseases of the circulatory system; K21.9 Gastro-esophageal reflux disease without esophagitis; D64.9 Anemia, unspecified; F17.200 Nicotine dependence, unspecified, uncomplicated; Z79.899 Other long term (current) drug therapy
CPT/HCPCS: 36415; 80048; 81001; 83735; 85007; 85027; 85610; 85730; 86850; 86900; 86901; 87641; C1769; J0690; J1100; J1940; J2250; J2270; J2370; J2405; J2704; J2710; J3010; J3475; J3490; J7030; J7040; J7060; J7120; S0028; 97116

== ENCOUNTER → 2017-01-19 | Outpatient (CLI) | payer OTHER ==
[~2017-01-19] MED LIST changes: +OXYC1TAB7 PO; +REGADENOSON 0.4 MG/5 ML DISP.SYRIN. IV ONE; +TAMS0.4C97 PO
--- NOTE | 2017-01-19 12:04 | RAD ---
APPROVED REPORT Test Type: Pharmacological Stress Nurse/Tech: Naa Silva R.N. Test Indications: cad Cardiac History: stents x 3, AAA repair, Medications: see ehr Medical History: hep c Resting ECG: sr Resting Heart Rate: 69 bpm Resting Blood Pressure: 115/58mmHg Pretest Chest Pain: No chest pain Nurse/Tech Notes lungs cta, heart tones regular, good radial pulse Consent: The procedure was explained to the patient in lay terms. Informed consent was witnessed. Cholo eout was entered into [employer]. History and Stress Test performed by Naa Silva R.N. Pharm. Details Pharmacologic stress testing was performed using 0.4mg per 5ml of regadenoson given intravenously ove r 7-10 seconds. Stress Symptoms No chest pain or symptoms. POST EXERCISE Reason for Termination: Infusion complete Max HR: 99 bpm Max Blood Pressure: 130/66mmHg Chest Pain: No. Arrhythmia: No. ST Change: No. INTERPRETATION Stress EKG Conclusion: No evidence of stress induced EKG changes. Imaging Protocol IMAGE PROTOCOL: Rest Tc-99m/stress Tc-99m 1 day Rest: Stress: Viability: Radiopharm.Tc99m [id number] Sestamibi [id number] 32mCi Img Date 01/19/2017 01/19/2017 Inj-Img [id number]. 60min. STRESS DATA End Diast. Vol.67.0mlAv. Heart Rate74.0bpm End Syst. Vol.12.0mlCO Index BSA0.0L/min Myocardial Uclp400.0gEject. Mwoaysrz13.0% Stress Rates Pk. Fill Rate4.55EDV/secLVtime Pk. Fill 236.05msec Pk. Empty Rate5.00ESV/secLVtime Pk. Okqci821.98msec 10/10 Pk. Fill1.11EDV/sec Stress Scores Regional WT1.00Summed WT12.00 Regional WM0.00Summed WM0.00 LV Perfusion There is a small sized, severe in intensity, fixed mid to distal inferolateral defect suggestive of s mall prior infarct. Wall Motion Normal wall motion. LV Perf. Quant 17 Seg. SSS3.00 17 Seg. SRS4.00 17 Seg. SDS1.00 Stress Defect Extent (% LAD)0.00Rest Defect Extent (% LAD)0.00Rev. Defect Extent (% LAD)0.00 Stress Defect Extent (% LCX) 18.80Rest Defect Extent (% LCX)30.00Rev. Defect Extent (% LCX)0.00 Stress Defect Extent (% RCA)1.10Rest Defect Extent (% RCA)0.00Rev. Defect Extent (% RCA)0.00 Stress Defect Extent (% CORETTA)5.70Rest Defect Extent (% CORETTA)7.00Rev. Defect Extent (% CORETTA)0.00 Other Information Quality:Good Risk Assessment: Low Risk Conclusion 1. No evidence of acute ischemic EKG changes 2. There is a small sized, severe in intensity, fixed mid to distal inferolateral defect suggestive o f small prior infarct. 3. Normal EF at > 70% 4. Low risk study
== END | disposition home or self-care (01) ==
LOC: NM 06:52
PROVIDERS: ATTEND Internal Medicine Cardiovascular Disease
DX: I25.10 Atherosclerotic heart disease of native coronary artery without angina pectoris (principal); I49.5 Sick sinus syndrome; Z95.5 Presence of coronary angioplasty implant and graft
CPT/HCPCS: 78452; 93017; 96374; 96375; 96376; A9500; J2785